=== PATIENT | male | born 1950 | race Caucasian/White ===

== ENCOUNTER → 2025-07-09 12:02 | Outpatient (CLI) | payer MEDICARE, SELFPAY ==
[2025-07-09 13:44] LABS: Alanine Aminotransferase 23 IU/L (<50); Albumin 4.5 g/dL (3.5-5.0); Albumin Globulin Ratio 1.7 (1.0-2.8); Alkaline Phosphatase 67 U/L (38-126); Blood Urea Nitrogen 25 mg/dL (9-20); Calcium 9.4 mg/dL (8.4-10.2); Carbon Dioxide 23 mmol/L (22-32); Chloride 108 mmol/L (98-107); Cholesterol 163 mg/dL (140-199); Estimated Glomerular Filt Rate 56 mL/min (>60); Globulin 2.7 g/dL (1.7-4.1); Glucose 108 mg/dL (70-99); HDL Cholesterol 62 mg/dL (40-60); HEMOLYSIS < 15 (0-50); Potassium 4.7 mmol/L (3.4-5.1); Sodium 140 mmol/L (137-145); Total Protein 7.2 g/dL (6.3-8.2); Triglycerides 127 mg/dL (35-150)
[2025-07-09 14:13] LABS: Prostate Specific Antigen 3.97 ng/mL (0.10-4.00)
[2025-07-09 14:15] LABS: Thyroid Stimulating Hormone 3.82 uIU/mL (0.47-4.68)
[2025-07-09 19:41] LABS: Add Manual Diff / Slide Review NO; Hematocrit 45.0 % (41-53); Hemoglobin 15.2 g/dL (13.5-17.5); Lymphocytes Absolute Auto 1100 /uL (1100-4500); Mean Corpuscular HGB Conc 33.7 % (30-36); Mean Corpuscular Hemoglobin 32.2 PG (26-34); Mean Corpuscular Volume 95.4 fL (80-100); Platelet Count 197 X10^3/uL (150-400)
== END ==
PROVIDERS: PCP Family Medicine; Referring Provider Family Medicine; Visit Provider Family Medicine
DX: I10 Essential (primary) hypertension (principal); N40.0 Benign prostatic hyperplasia without lower urinary tract symptoms; E78.5 Hyperlipidemia, unspecified; E03.9 Hypothyroidism, unspecified
CPT/HCPCS: 36415; 80053; 80061; 84153; 84443; 85025

== ENCOUNTER → 2025-07-28 13:07 | Outpatient (CLI) | payer MEDICARE, SELFPAY ==
--- NOTE | 2025-07-28 13:08 | DI.RAD.S_ITS ---
PROCEDURE: XR SHOULDER LT MIN 2V INDICATIONS: chronic left shoulder pain TECHNIQUE: 3 views of the shoulder were acquired. COMPARISON: None. FINDINGS: Bones: No acute fractures or dislocations. Chronic left distal clavicle fracture deformity. Moderate acromioclavicular joint degeneration. No suspicious bony lesions. Visualized ribs appear intact. Soft tissues: No suspicious soft tissue calcifications. IMPRESSION: Moderate acromioclavicular joint degeneration. No acute osseous abnormalities. Dictated by: Godwin Rubio M.D. on 07/28/2025 at 14:50 Approved by: Godwin Rubio M.D. on 07/28/2025 at 14:51
== END ==
PROVIDERS: PCP Family Medicine; Referring Provider Family Medicine; Visit Provider Family Medicine
DX: M19.012 Primary osteoarthritis, left shoulder (principal); M25.512 Pain in left shoulder; G89.29 Other chronic pain; S42.032S Displaced fracture of lateral end of left clavicle, sequela
CPT/HCPCS: 73030

== ENCOUNTER → 2025-09-29 11:12 | Outpatient (CLI) | payer MEDICARE, SELFPAY ==
--- NOTE | 2025-09-29 11:14 | DI.MRI.S_ITS ---
PROCEDURE: MR SHOULDER LT WO CON INDICATIONS: Chronic left shoulder pain TECHNIQUE: Noncontrast oblique coronal T2 fast spin echo with fat saturation, oblique sagittal T1 spin echo and T2 fast spin echo with fat saturation, axial T1 spin echo and T2 fast spin echo with fat saturation through the shoulder. COMPARISON: [facility], CR, XR SHOULDER LT 2+ VIEWS, 07/28/2025, 13:05. FINDINGS: Image quality: Excellent. Rotator cuff: High grade partial intrasubstance and likely bursal sided tearing of the supraspinatus tendon and the anterior portion of the infraspinatus tendon at the distal insertion superimposed on chronic tendinosis. Tear measures up to 19 mm in anterior-posterior dimension. Teres minor and subscapularis tendons are intact. No significant distortion rotator cuff muscle atrophy. 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 [id number] degenerative changes at the acromioclavicular joint. No acute trabecular bone injury. Chronic traction cystic changes are seen at the posterior superior humeral head and greater tuberosity near the rotator cuff tendon insertions. Mild partial-thickness cartilage thinning and surface irregularity in the glenohumeral joint with small marginal osteophytes. Small amount of fluid is seen in the subacromial/subdeltoid versus. No significant glenohumeral effusion. Capsule and soft tissues: Mild diffuse labral degeneration. Suspected chronic nondisplaced tearing of the anterior labrum. Proximal biceps long head tendon demonstrates mild tendinosis. There is normal fat signal in the rotator interval. Glenohumeral ligaments are normal in intact. IMPRESSION: 1. High-grade partial intrasubstance and likely bursal sided tearing of the supraspinatus tendon and the anterior portion the infraspinatus tendon at the distal insertions superimposed on chronic tendinosis. 2. 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 [id number] acromioclavicular joint osteoarthrosis. 3. Mild proximal biceps long head tendinosis. 4. Mild glenohumeral osteoarthrosis. Diffuse labral degeneration and suspected chronic nondisplaced tearing of the anterior labrum. 5. Small subacromial/subdeltoid bursal effusion or mild bursitis. Approved by: Juan F Holman M.D. on 09/29/2025 at 12:49
== END ==
LOC: MRI 11:13
PROVIDERS: Family Provider Family Medicine; PCP Family Medicine; Referring Provider Family Medicine; Visit Provider Family Medicine
DX: M75.112 Incomplete rotator cuff tear or rupture of left shoulder, not specified as traumatic (principal); S42.032S Displaced fracture of lateral end of left clavicle, sequela; M19.012 Primary osteoarthritis, left shoulder; M67.922 Unspecified disorder of synovium and tendon, left upper arm; M25.512 Pain in left shoulder; G89.29 Other chronic pain
CPT/HCPCS: 73221